=== PATIENT | female | born 1945 | race Caucasian/White ===

== ENCOUNTER 2018-11-11 05:50 | Inpatient (IN) | payer MEDICARE ==
[2018-11-08 14:19] LABS: BASOPHILS % (AUTO) 0.5 % (0.0-5.0); EOSINOPHILS % (AUTO) 2.1 % (0.0-8.0); HEMATOCRIT 37.9 % (36-48); LYMPHOCYTES % (AUTO) 25.4 % (21.0-51.0); MEAN CORPUSCULAR HEMOGLOBIN 30.5 pg (27.0-33.0); MEAN CORPUSCULAR HGB CONC 33.1 g/dL (32.0-36.0); MEAN CORPUSCULAR VOLUME 92.2 fL (79-99); MONOCYTES % (AUTO) 8.7 % (3.0-13.0); NEUTROPHILS % (AUTO) 63.3 % (40.0-77.0); NUCLEATED RED BLOOD CELLS 0.1 % (0.0-0.19); PLATELET COUNT (AUTO) 281 K/uL (130-400); RED BLOOD CELL COUNT(AUTO) 4.11 MIL/uL (4.00-5.50); RED CELL DISTRIBUTION WIDTH 14.6 % (11.0-15.5); WHITE BLOOD COUNT (AUTO) 7.7 K/uL (4.8-10.8)
[2018-11-08 14:26] VITALS: BP 157/88
[2018-11-08 14:38] LABS: CREATININE 0.8 mg/dL (0.5-1.5); POTASSIUM 4.5 mmol/L (3.5-5.1)
[~2018-11-11] VITALS: Ht 172.7 cm; Wt 105.1 kg
[2018-11-11] VITALS (22 sets, daily range): BP systolic 119–183; BP diastolic 63–81
[~2018-11-11 05:50] MED LIST: ACET650T24 PO; GABA-531 PO; OMEP40CA37 PO
[2018-11-11] MEDS ORDERED: CEFAZOLIN SODIUM 1 GM VIAL ONE (06:31)
[2018-11-11] MEDS ORDERED: LACTATED RINGERS 1000ML 1,000 ML IV ONE (06:31)
[2018-11-11] MEDS ORDERED: SUCCINYLCHOLINE 200MG/10ML SYR ONE ×2 (06:49→10:35)
[2018-11-11] MEDS ORDERED: LIDOCAINE PF 2% 5ML ABBOJECT ONE (06:50)
[2018-11-11] MEDS ORDERED: DEXAMETHASONE SOD PHOSPHATE 10MG/ML 1ML VIAL ONE ×2 (06:50→06:56)
[2018-11-11] MEDS ORDERED: NEOSTIGMINE 5MG/5ML SYR IV ONE (06:51)
[2018-11-11] MEDS ORDERED: GLYCOPYRROLATE 1 MG/5 ML SYRINGE ONE (06:51)
[2018-11-11] MEDS ORDERED: PROPOFOL 10 MG/ML 20ML VIAL IV ONE (06:51)
[2018-11-11] MEDS ORDERED: MIDAZOLAM HCL 1 MG/ML 2ML VIAL ONE (06:51)
[2018-11-11] MEDS ORDERED: FENTANYL CITRATE PF 50 MCG/1 ML 2ML VIAL ONE ×2 (06:52→10:22)
[2018-11-11] MEDS ORDERED: ONDANSETRON HCL 4 MG/2 ML VIAL ONE (06:52)
[2018-11-11] MEDS ORDERED: ROCURONIUM 10MG/1ML SYR 10 MG/ML ML ONE (06:52)
[2018-11-11] MEDS ORDERED: BUPIVACAINE/EPI/PF 0.25% 30ML VIAL IJ ONE (07:04)
[2018-11-11] MEDS ORDERED: THROMBIN-JMI 20000 UNIT KIT TP ONE (07:05)
[2018-11-11] MEDS ORDERED: BACITRACIN 50,000 UNIT VIAL ONE (07:05)
[2018-11-11] MEDS ORDERED: CEFAZOLIN SODIUM 1 GM VIAL IVP ONE (08:00)
[2018-11-11] MEDS ORDERED: PROMETHAZINE HCL 25 MG/ML 1ML AMPULE IM PRN (11:00)
[2018-11-11] MEDS ORDERED: MORPHINE SULFATE 2 MG/ML 1ML SYG IVP PRN (11:00)
[2018-11-11] MEDS ORDERED: SODIUM CHLORIDE 0.9% 10 ML VIAL IVP PRN (11:00)
[2018-11-11] MEDS ORDERED: ACETAMINOPHEN EXTENDED RELEASE 650 MG TABLET PO PRN (11:00)
[2018-11-11] MEDS: DEXAMETHASONE SOD PHOSPHATE 4 MG/ML 1ML VIAL IVP SCH ×3 (12:00→23:53)
[2018-11-11] MEDS: LACTATED RINGERS 1000ML 1,000 ML IV SCH ×2 (12:00→23:49)
[2018-11-11] MEDS: HYDROCODONE/ACETAMINOPHEN 5/325 MG TAB PO PRN ×3 (13:21→21:39)
[2018-11-11] MEDS: CEFAZOLIN SODIUM 1 GM VIAL IVP SCH ×3 (15:55→20:08)
--- NOTE | 2018-11-11 20:00 | NUR ---
ACTIVITY AMBULATED IN THE HALLWAY, STEADY GAIT, NO SOB, NO C/O PAIN, TOLERATED WELL, BACK TO BED, F/C TO GRAVITY DRAINAGE WITH CLEAR YELLOW URINE
[2018-11-11] MEDS ORDERED: GABAPENTIN 300 MG CAPSULE PO SCH (21:00)
--- NOTE | 2018-11-11 21:05 | NUR ---
ACTIVITY AMBULATED IN THE HALLWAY, STEADY GAIT, NO SOB NO C/O PAIN AT THIS TIME, BACK TO BED, F/C TO GRAVITY DRAINAGE WITH CLEAR YELLOW URINE, CALL GAITAN AT REACH, SOFT COLLAR INTACT DRESSING ANTERIOR NECK D/I
[2018-11-12] VITALS: BP 156/72
[2018-11-12 04:00] VITALS: BP 126/64
[2018-11-12] MEDS: DEXAMETHASONE SOD PHOSPHATE 4 MG/ML 1ML VIAL IVP SCH (05:23)
--- NOTE | 2018-11-12 06:30 | NUR ---
F/C F/C DISCONTINUED ORDERED, TOLERATED WELL, DTV, INSTRUCT PATIENT TO CALL NURSE WHEN URGE TO VOID, PATIENT VERBALIZES UNDERSTANDING VIA TEACH BACK, CALL GAITAN AT REACH
[2018-11-12 07:36] VITALS: BP 118/61
[2018-11-12] MEDS: CEFAZOLIN SODIUM 1 GM VIAL IVP SCH (08:33)
[2018-11-12] MEDS ORDERED: PANTOPRAZOLE SODIUM 40 MG TABLET.DR PO SCH (09:00)
--- NOTE | 2018-11-12 11:00 | NUR ---
DISCHARGE DISCHARGE TEACHING PROVIDED TO PATIENT REGARDING RX (TRAMADOL), SCHEDULED F/U APPT WITH DR. DUARTE, DR. DUARTE DISCHARGE INSTRUCTIONS. STAPLE REMOVAL KIT PROVIDED TO PATIENT AND INFORMED TO TAKE STAPLE REMOVAL KIT TO F/U APPT WITH DR. DUARTE. PERFORMED NECK DRESSING CHANGE. ANTERIOR NECK INCISION NOTED TO BE ASYMPTOMATIC, APPROXIMATED, 17 CLIVE INTACT. CLEANSED NECK INCISION WITH BETADINE, APPLIED 4X4 GAUZE, SECURED WITH MEDIPORE TAPE. REAPPLIED SOFT CERVICAL COLLAR AFTER DRESSING CHANGE. REMOVED 20G IV FROM LEFT HAND, CATHETER TIP INTACT. PATIENT VERBALIZED UNDERSTANDING OF DISCHARGE TEACHING. PATIENT REPORTS NO PAIN AND IS IN NO APPARENT DISTRESS. PATIENT TO BE DRIVEN HOME BY FRIEND.
--- NOTE | 2018-11-15 09:06 | NUR ---
CM NOTES PT HERE FOR SHORT STAY INPATIENT SCHEDULED PROCEDURE. NO TRIGGERS TO CM NO CONCERNS VOICED TO PRIMARY RN CHART REVIEWED, PT DC'D PRIOR TO CM DETAILED ASSESSMENT Addendum: 11/15/18 at 0908 by RUFINO BHARDWAJ RN CM Amended: Links added.
== END 2018-11-12 11:00 | disposition home or self-care (01) | DRG 473 ==
LOC: DAHIP 05:50 → 4AH 12:49
PROVIDERS: ADMIT Neurological Surgery; ATTEND Neurological Surgery
PROC: 0RG20A0 Fusion of 2 or more Cervical Vertebral Joints with Interbody Fusion Device, Anterior Approach, Anterior Column, Open Approach (ICD-10-PCS; principal; 2018-11-11 07:55)
PROC: 4A11X4G Monitoring of Peripheral Nervous Electrical Activity, Intraoperative, External Approach (ICD-10-PCS; 2018-11-11 07:55)
DX: M47.22 Other spondylosis with radiculopathy, cervical region (principal); K21.0 Gastro-esophageal reflux disease with esophagitis; K22.70 Barrett's esophagus without dysplasia; M25.78 Osteophyte, vertebrae; M48.02 Spinal stenosis, cervical region; I10 Essential (primary) hypertension; M54.9 Dorsalgia, unspecified; I08.0 Rheumatic disorders of both mitral and aortic valves; G47.33 Obstructive sleep apnea (adult) (pediatric); E66.9 Obesity, unspecified; Z88.8 Allergy status to other drugs, medicaments and biological substances; Z91.041 Radiographic dye allergy status; Z90.49 Acquired absence of other specified parts of digestive tract; Z98.51 Tubal ligation status; Z68.35 Body mass index [BMI] 35.0-35.9, adult
CPT/HCPCS: 36415; 72020; 80048; 85025; A4344; G0378; J0330; J0690; J1100; J2001; J2250; J2405; J2704; J2710; J3010; J3490; J7120

== ENCOUNTER → 2018-12-10 | Outpatient (CLI) | payer MEDICARE | END | disposition home or self-care (01) | LOC: OIH 09:49 | PROVIDERS: ATTEND Neurological Surgery | DX: M47.812 Spondylosis without myelopathy or radiculopathy, cervical region (principal); M43.22 Fusion of spine, cervical region; M85.88 Other specified disorders of bone density and structure, other site | CPT/HCPCS: 72040 ==

== ENCOUNTER 2018-12-23 08:01 | Inpatient (IN) | payer MEDICARE ==
[2018-12-20 12:50] VITALS: BP 141/66
[2018-12-20 12:53] LABS: BASOPHILS % (AUTO) 0.7 % (0.0-5.0); EOSINOPHILS % (AUTO) 3.8 % (0.0-8.0); HEMATOCRIT 39.3 % (36-48); LYMPHOCYTES % (AUTO) 31.4 % (21.0-51.0); MEAN CORPUSCULAR HEMOGLOBIN 29.7 pg (27.0-33.0); MEAN CORPUSCULAR HGB CONC 32.8 g/dL (32.0-36.0); MEAN CORPUSCULAR VOLUME 90.4 fL (79-99); MONOCYTES % (AUTO) 10.9 % (3.0-13.0); NEUTROPHILS % (AUTO) 53.2 % (40.0-77.0); NUCLEATED RED BLOOD CELLS 0.1 % (0.0-0.19); PLATELET COUNT (AUTO) 182 K/uL (130-400); RED BLOOD CELL COUNT(AUTO) 4.35 MIL/uL (4.00-5.50)
[2018-12-20 12:54] LABS: APPEARANCE,URINE TURBID (CLEAR); BILIRUBIN,URINE NEGATIVE (NEGATIVE); COLOR,URINE YELLOW (YELLOW); GLUCOSE, URINE (UA) NEGATIVE (NEGATIVE); KETONES,URINE NEGATIVE (NEGATIVE); LEUKOCYTE ESTERASE ,URINE MODERATE (NEGATIVE); NITRATE,URINE POSITIVE (NEGATIVE); OCCULT BLOOD,URINE MODERATE (NEGATIVE); PH,URINE 5.5 (5.0-8.0); PROTEIN,URINE TRACE mg/dL (NEGATIVE); UROBILINOGEN,URINE 0.2 mg/dL (0.2-1.0)
[2018-12-20 13:03] LABS: CREATININE 1.1 mg/dL (0.5-1.5); POTASSIUM 4.7 mmol/L (3.5-5.1)
[2018-12-20 13:08] LABS: BACTERIA,URINE Many /HPF (None Seen); RBC,URINE 0-1 /HPF (0-1); SQUAMOUS EPITHELIAL CELL,UR Rare /HPF (0-2); WBC,URINE TNTC /HPF (0-1)
--- NOTE | 2018-12-22 17:51 | NUR ---
NURSING: REPORTED ABNORMAL LABS TO [place] AT DR. SAL'S OFFICE, NO NEW ORDERS RECEIVED, OK TO PROCEED.
[2018-12-23] VITALS (23 sets, daily range): BP systolic 120–149; BP diastolic 49–72
[~2018-12-23] VITALS: Ht 172.7 cm; Wt 105.1 kg
[2018-12-23] MEDS: CEFTRIAXONE SODIUM 1 GM IVP SCH ×2 (06:00→09:36)
[2018-12-23] MEDS ORDERED: IOHEXOL-350 50ML VIAL IV ONE (09:10)
[2018-12-23] MEDS ORDERED: SODIUM CHLORIDE 0.9% 1000ML 0 ML IV ONE (09:18)
[2018-12-23] MEDS: GENTAMICIN 80 MG/NS 100 ML PB 100 ML IV SCH ×2 (09:26→13:08)
[2018-12-23] MEDS ORDERED: LACTATED RINGERS 1000ML 1,000 ML IV ONE (09:31)
[2018-12-23] MEDS ORDERED: FENTANYL CITRATE PF 50 MCG/1 ML 2ML VIAL ONE (09:33)
[2018-12-23] MEDS ORDERED: LIDOCAINE PF 2% 5ML ABBOJECT ONE (09:33)
[2018-12-23] MEDS ORDERED: MIDAZOLAM HCL 1 MG/ML 2ML VIAL ONE (09:33)
[2018-12-23] MEDS ORDERED: PROPOFOL 10 MG/ML 20ML VIAL IV ONE (09:33)
[2018-12-23] MEDS ORDERED: DEXAMETHASONE SOD PHOSPHATE 10MG/ML 1ML VIAL ONE (09:37)
[2018-12-23] MEDS ORDERED: ONDANSETRON HCL 4 MG/2 ML VIAL ONE (09:38)
[2018-12-23] MEDS ORDERED: EPHEDRINE SULFATE 50 MG/ML AMPULE ONE (09:51)
[2018-12-23] MEDS ORDERED: MEPERIDINE-PF 25 MG/ML SYG ONE (10:03)
--- NOTE | 2018-12-23 10:45 | NUR ---
PROCEDURE REPORT RECEIVED FROM YADEE ROBLES (PACU). PATIENT S/P BILATERAL URETERAL STENT PLACEMENT BY DR. SAL. PATIENT STABLE AT THIS TIME.
[2018-12-23 10:48] LABS: BASOPHILS % (AUTO) 0.4 % (0.0-5.0); EOSINOPHILS % (AUTO) 1.2 % (0.0-8.0); HEMATOCRIT 34.2 % (36-48); LYMPHOCYTES % (AUTO) 43.4 % (21.0-51.0); MEAN CORPUSCULAR HEMOGLOBIN 30.2 pg (27.0-33.0); MEAN CORPUSCULAR HGB CONC 33.5 g/dL (32.0-36.0); MEAN CORPUSCULAR VOLUME 90.4 fL (79-99); MONOCYTES % (AUTO) 7.6 % (3.0-13.0); NEUTROPHILS % (AUTO) 47.4 % (40.0-77.0); NUCLEATED RED BLOOD CELLS 0.1 % (0.0-0.19); PLATELET COUNT (AUTO) 137 K/uL (130-400); RED BLOOD CELL COUNT(AUTO) 3.79 MIL/uL (4.00-5.50); RED CELL DISTRIBUTION WIDTH 14.9 % (11.0-15.5); WHITE BLOOD COUNT (AUTO) 6.3 K/uL (4.8-10.8)
[2018-12-23 10:55] LABS: CREATININE 1.2 mg/dL (0.5-1.5); POTASSIUM 3.8 mmol/L (3.5-5.1)
[2018-12-23] MEDS ORDERED: ONDANSETRON HCL 4 MG/2 ML VIAL IVP PRN (16:45)
--- NOTE | 2018-12-23 17:40 | NUR ---
CALL RECEIVED FROM KRANTHI HERNANDEZ TO DISCHARGE PATIENT IN AM IF NO FEVER DURING REGIONAL ACCOUNT EXECUTIVE. PATIENT TO START LEVAQUIN 500MG 1 TAB PO DAILY X 7 DAYS AFTER 24 HOURS FROM LAST ROCEPHIN ADMINISTRATION. FOLLOW UP IN 1 WEEK IN THE OFFICE.
[2018-12-23] MEDS: LACTATED RINGERS 1000ML 1,000 ML IV SCH (20:08)
[2018-12-24] VITALS: BP 143/76
[2018-12-24 04:00] VITALS: BP 133/62
[2018-12-24] MEDS: LACTATED RINGERS 1000ML 1,000 ML IV SCH ×2 (04:28→18:24)
[2018-12-24 08:00] VITALS: BP 126/66
--- NOTE | 2018-12-24 08:40 | NUR ---
DR. DORON GUEVARA RE; PT REFUSING TO LEAVE Addendum: 12/24/18 at 1048 by FAHAD OCAMPO RN RN PT FEELS VERY WEAK AND IS AFRAID OF NOT BEING ABLE TO CARE FOR HERSELF AT HOME TODAY.
[2018-12-24] MEDS: CEFTRIAXONE SODIUM 1 GM IVP SCH (09:38)
[2018-12-24] MEDS: PANTOPRAZOLE SODIUM 40 MG TABLET.DR PO SCH (09:38)
[2018-12-24 11:00] VITALS: BP 124/68
[2018-12-24 16:00] VITALS: BP 143/75
[2018-12-24 19:52] VITALS: BP 145/69
[2018-12-24] MEDS: ACETAMINOPHEN 325 MG TAB PO PRN (20:10)
[2018-12-25] VITALS (7 sets, daily range): BP systolic 103–149; BP diastolic 54–72
[2018-12-25] MEDS: ACETAMINOPHEN 325 MG TAB PO PRN ×2 (03:20→17:14)
[2018-12-25 06:02] LABS: HEMATOCRIT 32.4 % (36-48); MEAN CORPUSCULAR HEMOGLOBIN 30.4 pg (27.0-33.0); MEAN CORPUSCULAR HGB CONC 34.1 g/dL (32.0-36.0); MEAN CORPUSCULAR VOLUME 89.1 fL (79-99); NUCLEATED RED BLOOD CELLS 0.1 % (0.0-0.19); PLATELET COUNT (AUTO) 142 K/uL (130-400); RED BLOOD CELL COUNT(AUTO) 3.63 MIL/uL (4.00-5.50); RED CELL DISTRIBUTION WIDTH 14.8 % (11.0-15.5); WHITE BLOOD COUNT (AUTO) 4.3 K/uL (4.8-10.8)
[2018-12-25 06:12] LABS: CREATININE 1.1 mg/dL (0.5-1.5); POTASSIUM 3.5 mmol/L (3.5-5.1)
[2018-12-25] MEDS: LACTATED RINGERS 1000ML 1,000 ML IV SCH ×2 (08:23→20:15)
[2018-12-25] MEDS: PANTOPRAZOLE SODIUM 40 MG TABLET.DR PO SCH (08:42)
[2018-12-25] MEDS: CEFTRIAXONE SODIUM 1 GM IVP SCH (08:42)
[2018-12-25] MEDS ORDERED: POTASSIUM CHLORIDE 20 MEQ ERTAB PO ONE (17:06)
[2018-12-25] MEDS ORDERED: POTASSIUM CHLORIDE 20 MEQ ERTAB PO SCH (17:15)
[2018-12-25] MEDS: LEVOFLOXACIN 750 MG/D5W 150 ML 150 ML IV SCH (19:38)
[2018-12-26] MEDS: ACETAMINOPHEN 325 MG TAB PO PRN ×3 (03:54→23:25)
[2018-12-26] MEDS: LACTATED RINGERS 1000ML 1,000 ML IV SCH ×2 (03:59→19:18)
[2018-12-26 04:07] VITALS: BP 145/58
[2018-12-26 05:44] LABS: BASOPHILS % (AUTO) 0.6 % (0.0-5.0); EOSINOPHILS % (AUTO) 1.4 % (0.0-8.0); LYMPHOCYTES % (AUTO) 43.2 % (21.0-51.0); MEAN CORPUSCULAR HEMOGLOBIN 30.3 pg (27.0-33.0); MEAN CORPUSCULAR HGB CONC 33.9 g/dL (32.0-36.0); MEAN CORPUSCULAR VOLUME 89.4 fL (79-99); MONOCYTES % (AUTO) 8.6 % (3.0-13.0); NEUTROPHILS % (AUTO) 46.2 % (40.0-77.0); PLATELET COUNT (AUTO) 146 K/uL (130-400); RED CELL DISTRIBUTION WIDTH 15.2 % (11.0-15.5); WHITE BLOOD COUNT (AUTO) 5.1 K/uL (4.8-10.8)
[2018-12-26 06:18] LABS: ALBUMIN 2.4 g/dL (3.5-5.0); BILIRUBIN,TOTAL 0.4 mg/dL (0.2-1.0); MAGNESIUM 1.4 mg/dL (1.80-2.40); PHOSPHORUS 2.9 mg/dL (2.5-4.9); POTASSIUM 3.5 mmol/L (3.5-5.1); THYROID STIMULATING HORMONE 1.01 uIU/mL (0.36-3.74); TOTAL PROTEIN, SERUM 5.3 g/dL (6.0-8.3)
[2018-12-26] MEDS ORDERED: POTASSIUM CHLORIDE 10% ELIXIR 20 MEQ/15 ML UDCUP PO PRN (08:00)
[2018-12-26] MEDS ORDERED: POTASSIUM CHLORIDE 20MEQ/100ML 100 ML IV PRN (08:00)
[2018-12-26] MEDS ORDERED: LIDOCAINE HCL-MPF 1% 2ML VIAL IV PRN (08:00)
[2018-12-26 08:08] VITALS: BP 114/64
--- NOTE | 2018-12-26 08:30 | NUR ---
PATIENT HAS BILATERAL URETERAL STENT PLACEMENT 12/23 Addendum: 12/26/18 at 1132 by ISELA DOUGLASS RN RN Amended: Links added.
[2018-12-26] MEDS ORDERED: LEVOFLOXACIN 750 MG/D5W 150 ML 150 ML IV SCH (09:00)
[2018-12-26] MEDS: PANTOPRAZOLE SODIUM 40 MG TABLET.DR PO SCH (09:12)
[2018-12-26] MEDS: MAGNESIUM 2GM PREMIX 50ML 50 ML IV PRN (09:13)
[2018-12-26] MEDS: POTASSIUM CHLORIDE 20 MEQ ERTAB PO PRN (09:16)
--- NOTE | 2018-12-26 10:44 | NUR ---
DR SAL ROUNDED ON PATIENT ORDERERS PLACED FOR UA AND URINE CULTURE.
[2018-12-26 11:00] LABS: APPEARANCE,URINE Cloudy (CLEAR); BILIRUBIN,URINE Negative (NEGATIVE); COLOR,URINE Orange (YELLOW); GLUCOSE, URINE (UA) Negative (NEGATIVE); KETONES,URINE Negative (NEGATIVE); LEUKOCYTE ESTERASE ,URINE Moderate (NEGATIVE); NITRATE,URINE Negative (NEGATIVE); OCCULT BLOOD,URINE Large (NEGATIVE); PROTEIN,URINE POS 2+ mg/dL (NEGATIVE)
[2018-12-26 11:21] LABS: BACTERIA,URINE Rare /HPF (None Seen); RBC,URINE >100 /HPF (0-1); TRANSITIONAL EPI CELLS,URINE Few /HPF (None Seen)
[2018-12-26 11:22] LABS: RENAL EPITHELIAL CELLS,URINE Rare /HPF (None Seen)
[2018-12-26 12:19] VITALS: BP 110/43
[2018-12-26 15:51] VITALS: BP 147/67
[2018-12-26] MEDS ORDERED: LACTULOSE 20 GM/30 ML UDCUP PO PRN (17:15)
[2018-12-26 19:33] VITALS: BP 127/67
[2018-12-26] MEDS: LEVOFLOXACIN 750 MG/D5W 150 ML 150 ML IV SCH (19:53)
[2018-12-27] MEDS: LACTATED RINGERS 1000ML 1,000 ML IV SCH (00:18)
[2018-12-27 00:19] VITALS: BP 145/96
[2018-12-27 04:15] VITALS: BP 114/62
[2018-12-27 05:46] LABS: BASOPHILS % (AUTO) 0.5 % (0.0-5.0); EOSINOPHILS % (AUTO) 0.3 % (0.0-8.0); HEMATOCRIT 33.3 % (36-48); LYMPHOCYTES % (AUTO) 51.5 % (21.0-51.0); MEAN CORPUSCULAR HEMOGLOBIN 29.9 pg (27.0-33.0); MEAN CORPUSCULAR HGB CONC 33.3 g/dL (32.0-36.0); MEAN CORPUSCULAR VOLUME 89.6 fL (79-99); MONOCYTES % (AUTO) 6.6 % (3.0-13.0); NEUTROPHILS % (AUTO) 41.1 % (40.0-77.0); NUCLEATED RED BLOOD CELLS 0.1 % (0.0-0.19); PLATELET COUNT (AUTO) 143 K/uL (130-400); RED BLOOD CELL COUNT(AUTO) 3.72 MIL/uL (4.00-5.50); RED CELL DISTRIBUTION WIDTH 14.9 % (11.0-15.5)
[2018-12-27 06:10] LABS: ALBUMIN 2.4 g/dL (3.5-5.0); BILIRUBIN,TOTAL 0.4 mg/dL (0.2-1.0); CREATININE 1.1 mg/dL (0.5-1.5); MAGNESIUM 1.8 mg/dL (1.80-2.40); POTASSIUM 3.6 mmol/L (3.5-5.1); TOTAL PROTEIN, SERUM 5.1 g/dL (6.0-8.3)
[2018-12-27 07:30] VITALS: BP 118/63
[2018-12-27] MEDS: PANTOPRAZOLE SODIUM 40 MG TABLET.DR PO SCH (09:23)
[2018-12-27] MEDS: ACETAMINOPHEN 325 MG TAB PO PRN ×2 (09:24→16:20)
[2018-12-27 11:00] VITALS: BP 104/39
[2018-12-27 16:00] VITALS: BP 129/57
[2018-12-27] MEDS: POTASSIUM CHLORIDE 20 MEQ ERTAB PO PRN (16:19)
[2018-12-27] MEDS: MAGNESIUM 2GM PREMIX 50ML 50 ML IV PRN (16:21)
[2018-12-27 20:00] VITALS: BP 128/63
[2018-12-27] MEDS: LEVOFLOXACIN 750 MG/D5W 150 ML 150 ML IV SCH (21:19)
[2018-12-28] VITALS: BP 155/61
[2018-12-28] MEDS: ACETAMINOPHEN 325 MG TAB PO PRN ×3 (00:30→18:56)
--- NOTE | 2018-12-28 01:45 | NUR ---
ELEVATED TEMPERATURE REASSESSMENT OF TEMPERATURE 102.9 FROM TEMP 100.2. PATIENT WANTING TO SHOWER RIGHT NOW TO SEE IF TEMPERATURE WILL GO DOWN.
[2018-12-28 04:00] VITALS: BP 117/55
[2018-12-28] MEDS: LACTATED RINGERS 1000ML 1,000 ML IV SCH ×2 (04:38→18:59)
[2018-12-28 05:52] LABS: HEMATOCRIT 32.4 % (36-48); MEAN CORPUSCULAR HEMOGLOBIN 29.7 pg (27.0-33.0); MEAN CORPUSCULAR HGB CONC 33.7 g/dL (32.0-36.0); MEAN CORPUSCULAR VOLUME 88.4 fL (79-99); NUCLEATED RED BLOOD CELLS 0.2 % (0.0-0.19); PLATELET COUNT (AUTO) 162 K/uL (130-400); RED BLOOD CELL COUNT(AUTO) 3.67 MIL/uL (4.00-5.50); RED CELL DISTRIBUTION WIDTH 15.3 % (11.0-15.5); WHITE BLOOD COUNT (AUTO) 8.5 K/uL (4.8-10.8)
[2018-12-28 06:00] LABS: ALBUMIN 2.2 g/dL (3.5-5.0); BILIRUBIN,TOTAL 0.5 mg/dL (0.2-1.0); CREATININE 1.3 mg/dL (0.5-1.5); POTASSIUM 3.7 mmol/L (3.5-5.1)
[2018-12-28] MEDS: POTASSIUM CHLORIDE 20 MEQ ERTAB PO PRN ×2 (06:41→09:24)
[2018-12-28 07:00] VITALS: BP 120/57
[2018-12-28 08:33] LABS: LYMPHOCYTES % (MANUAL) 36 % (22-44); MAN.DIFF COMMENT-IMPRESSION MANUAL DIFFERENTIAL; MONOCYTES % (MANUAL) 10 % (2-9); PLATELET MORPHOLOGY COMMENT ADEQUATE; REACTIVE LYMPHOCYTES 17 % (0-0); SEGMENTED NEUTROPHILS % 37 % (40-70)
[2018-12-28] MEDS: PANTOPRAZOLE SODIUM 40 MG TABLET.DR PO SCH (09:24)
[2018-12-28 11:00] VITALS: BP 122/86
[2018-12-28] MEDS: ZOSYN 3.375GM+NS 50ML 50 ML IV SCH ×2 (14:48→22:05)
[2018-12-28 16:00] VITALS: BP 122/67
--- NOTE | 2018-12-28 17:20 | NUR ---
Nutrition Intervention: Nutrition screen based on LOS x 5 days. Pt. S/P Cystoscopy with JJ stent placement chayo.(12/23/18). Pt. asleep during RD visit. Pt. on Regular diet. Pt. with 50% p.o. intake, as noted in EMR. Labs reviewed(Alb 2.2). LBM: 12/27/18. SR-21, elastic. BMI: 33.2, Obesity Grade 1. Recommendations: 1) Rec. Ensure QD with B'fast meal. 2) Continue to monitor pt's nutritional status. 3) Consult RD as nutrition concerns arise. Addendum: 12/28/18 at [address] Amended: Links added.
--- NOTE | 2018-12-28 18:30 | NUR ---
NOTIFIED RESPIRATORY REGARDING NEW ORDER FOR INCENTIVE SPIROMETER. PER RESP TECH WILL STOP BY
--- NOTE | 2018-12-28 18:30 | NUR ---
NOTIFIED JADEN CAMACHO REGARDING TEMP AT 102.4 ORAL . ORDERS GIVEN FOR BLOOD CULTURES . WILL CONT TO MONITOR
[2018-12-28 20:00] VITALS: BP 133/59
--- NOTE | 2018-12-28 23:53 | NUR ---
CPAP REQUESTED BY PT INFORMED RT THAT PATIENT WANTS A CPAP. LESLI RT SAID SHE WOULD SET HER UP WITH A CIRCUIT TO MATCH HER HOME SETTINGS.
[2018-12-29] VITALS (7 sets, daily range): BP systolic 78–133; BP diastolic 34–72
[2018-12-29 05:12] LABS: CREATININE 1.3 mg/dL (0.5-1.5); POTASSIUM 4.5 mmol/L (3.5-5.1)
[2018-12-29 05:26] LABS: HEMATOCRIT 35.1 % (36-48); MEAN CORPUSCULAR HEMOGLOBIN 29.8 pg (27.0-33.0); MEAN CORPUSCULAR HGB CONC 33.4 g/dL (32.0-36.0); MEAN CORPUSCULAR VOLUME 89.2 fL (79-99); NUCLEATED RED BLOOD CELLS 0.2 % (0.0-0.19); PLATELET COUNT (AUTO) 167 K/uL (130-400); RED BLOOD CELL COUNT(AUTO) 3.94 MIL/uL (4.00-5.50); RED CELL DISTRIBUTION WIDTH 15.7 % (11.0-15.5)
[2018-12-29] MEDS: ZOSYN 3.375GM+NS 50ML 50 ML IV SCH ×3 (06:08→21:07)
[2018-12-29] MEDS: LACTATED RINGERS 1000ML 1,000 ML IV SCH (06:09)
[2018-12-29 06:22] LABS: BAND NEUTROPHILS % (MANUAL) 15 % (0-2); BASOPHILS % (MANUAL) 1 % (0-2); EOSINOPHILS % (MANUAL) 1 % (1-6); LYMPHOCYTES % (MANUAL) 36 % (22-44); MAN.DIFF COMMENT-IMPRESSION MANUAL DIFFERENTIAL; MONOCYTES % (MANUAL) 6 % (2-9); REACTIVE LYMPHOCYTES 15 % (0-0); SEGMENTED NEUTROPHILS % 26 % (40-70)
[2018-12-29 06:23] LABS: PLATELET MORPHOLOGY COMMENT ADEQUATE
[2018-12-29] MEDS: ACETAMINOPHEN 325 MG TAB PO PRN ×2 (09:28→21:07)
[2018-12-29] MEDS: PANTOPRAZOLE SODIUM 40 MG TABLET.DR PO SCH (09:28)
--- NOTE | 2018-12-29 12:08 | NUR ---
PATIENT HAD JUST COMPLETED SOME ACTIVITIES WITH PHYSICAL THERAPY AND WAS LEFT SITTING IN THE CHAIR. DURING ROUTINE VITAL SIGNS CHECK SHE WAS FOUND HYPOTENSIVE WITH SBP 80'S/40'S AND SHE REPORTED FEELING WEEK. I REQUESTED THERESA THE PIGMENT PROCESSOR ASSIST HER BACK INTO BED WITH ELEVATION OF THE LOWER EXTREMITIES AND HOSPITALIST SALES SERVICE ASSISTANT WAS NOTIFIED OF THE CURRENT STATUS AND OF FEBRILE EPISODE EARLIER. NEW ORDER WAS RECEIVED FOR IV BOLUS. WILL CONTINUE TO MONITOR.
[2018-12-29] MEDS ORDERED: SODIUM CHLORIDE 0.9% 500ML 500 ML IV SCH (12:15)
[2018-12-29] MEDS ORDERED: SODIUM CHLORIDE 0.9% 500ML 500 ML IV ONE (12:15)
--- NOTE | 2018-12-29 13:30 | NUR ---
BP 128/77 WAS RECORDED AFTER THE NS BOLUS INFUSION.
[2018-12-29] MEDS: DOXYCYCLINE 100MG+NS 250ML 250 ML IV SCH (16:30)
[2018-12-30] VITALS (12 sets, daily range): BP systolic 77–131; BP diastolic 34–70
[2018-12-30] MEDS: LACTATED RINGERS 1000ML 1,000 ML IV SCH ×2 (04:53→23:18)
[2018-12-30] MEDS: DOXYCYCLINE 100MG+NS 250ML 250 ML IV SCH ×2 (04:53→16:35)
[2018-12-30 06:09] LABS: BASOPHILS % (AUTO) 0.5 % (0.0-5.0); EOSINOPHILS % (AUTO) 0.8 % (0.0-8.0); HEMATOCRIT 31.2 % (36-48); LYMPHOCYTES % (AUTO) 68.1 % (21.0-51.0); MEAN CORPUSCULAR HEMOGLOBIN 29.8 pg (27.0-33.0); MEAN CORPUSCULAR HGB CONC 33.7 g/dL (32.0-36.0); MEAN CORPUSCULAR VOLUME 88.3 fL (79-99); MONOCYTES % (AUTO) 6.4 % (3.0-13.0); NEUTROPHILS % (AUTO) 24.2 % (40.0-77.0); NUCLEATED RED BLOOD CELLS 0.1 % (0.0-0.19); PLATELET COUNT (AUTO) 171 K/uL (130-400); RED BLOOD CELL COUNT(AUTO) 3.54 MIL/uL (4.00-5.50); RED CELL DISTRIBUTION WIDTH 15.6 % (11.0-15.5); WHITE BLOOD COUNT (AUTO) 9.3 K/uL (4.8-10.8)
[2018-12-30 06:21] LABS: CREATININE 1.3 mg/dL (0.5-1.5); POTASSIUM 4.4 mmol/L (3.5-5.1)
[2018-12-30] MEDS: ZOSYN 3.375GM+NS 50ML 50 ML IV SCH ×3 (06:29→22:03)
[2018-12-30] MEDS: PANTOPRAZOLE SODIUM 40 MG TABLET.DR PO SCH (08:11)
[2018-12-30] MEDS: ACETAMINOPHEN 325 MG TAB PO PRN ×2 (08:13→20:08)
[2018-12-30] MEDS ORDERED: SODIUM CHLORIDE 0.9% 500ML 500 ML IV ONE (11:00)
[2018-12-30] MEDS ORDERED: SODIUM CHLORIDE 0.9% 500ML 500 ML IV SCH ×2 (11:00)
--- NOTE | 2018-12-30 11:15 | NUR ---
OBSERVED FLUSHED AND CLAMMY AND PT REPORTED FEELING WEAK AND WORSE THAN YESTERDAY. I REQUESTED THAT COAL CARRIER CHECK VS IMMEDIATELY AND BP 77/39 AND RECHECK BP 82/39 WITH TEMP 98.3. SHE WAS PLACED IN TRENDELENBERG POSITION AND HISTORIC CLOTHING AND COSTUME MAKER WAS NOTIFIED. ORDER WAS RECEIVED FOR NS 500ML IV BOLUS WHICH IS CARRIED OUT. WILL CONTINUE TO MONITOR.
--- NOTE | 2018-12-30 12:00 | NUR ---
IMPROVEMENT OBSERVED IN BLOOD PRESSURE AND PATIENT FACE DOES NOT LOOK FLUSHED ANYMORE. NEW IV LINE WAS INSERTED TO THE RIGHT FOREARM WITHOUT PROBLEM.
[2018-12-30] MEDS ORDERED: IOHEXOL 350 MG/ML 100ML INFUS..BTL IV ONE (14:25)
[2018-12-30] MEDS ORDERED: DIPHENHYDRAMINE HCL 25 MG CAPSULE PO PRN (14:30)
[2018-12-30] MEDS ORDERED: DiphenhydrAMINE HCL 50 MG/ML VIAL ONE (16:29)
--- NOTE | 2018-12-30 16:39 | NUR ---
TAKEN TO CT SCAN VIA W/C IN STABLE CONDITION. BENADRYL IV WAS ADMINISTERED PRIOR TO CT SCAN.
--- NOTE | 2018-12-30 17:15 | NUR ---
RETURNED FROM CT SCAN, IVF/ABX RESTARTED.
[2018-12-30] MEDS ORDERED: DiphenhydrAMINE HCL 50 MG/ML VIAL IV SCH (17:30)
[2018-12-31 03:33] VITALS: BP 109/59
[2018-12-31] MEDS: DOXYCYCLINE 100MG+NS 250ML 250 ML IV SCH ×2 (04:12→17:00)
[2018-12-31 04:13] LABS: BASOPHILS % (AUTO) 0.6 % (0.0-5.0); EOSINOPHILS % (AUTO) 0.6 % (0.0-8.0); HEMATOCRIT 30.3 % (36-48); MEAN CORPUSCULAR HEMOGLOBIN 30.3 pg (27.0-33.0); MEAN CORPUSCULAR HGB CONC 34.2 g/dL (32.0-36.0); MEAN CORPUSCULAR VOLUME 88.8 fL (79-99); MONOCYTES % (AUTO) 4.6 % (3.0-13.0); NEUTROPHILS % (AUTO) 22.2 % (40.0-77.0); NUCLEATED RED BLOOD CELLS 0.1 % (0.0-0.19); PLATELET COUNT (AUTO) 148 K/uL (130-400); RED BLOOD CELL COUNT(AUTO) 3.42 MIL/uL (4.00-5.50); RED CELL DISTRIBUTION WIDTH 15.9 % (11.0-15.5); WHITE BLOOD COUNT (AUTO) 10.4 K/uL (4.8-10.8)
[2018-12-31 04:20] LABS: CREATININE 1.3 mg/dL (0.5-1.5); POTASSIUM 3.9 mmol/L (3.5-5.1)
[2018-12-31] MEDS: ZOSYN 3.375GM+NS 50ML 50 ML IV SCH ×3 (06:09→22:29)
[2018-12-31] MEDS: PANTOPRAZOLE SODIUM 40 MG TABLET.DR PO SCH (06:39)
[2018-12-31 07:28] VITALS: BP 119/43
[2018-12-31 11:15] VITALS: BP 99/41
--- NOTE | 2018-12-31 13:35 | NUR ---
RD Follow up Note Pt tolerating current Regular Diet, Ensure QD, as per Pt. Pt with fair PO (50%). Pt states poor appetite but tries to eat. RD to update diet preferences to encourage increased PO intake. Pt LBM 12/30/18. GFR 43, Ca 7.4. RD to continue to monitor. Please notify RD as additional nutrition concerns arise. Thank you. Addendum: 12/31/18 at [address] Amended: Links added. Addendum: 12/31/18 at [address] ADDENDUM PATIENT REPORTS DOES NOT HAVE FISH/SEAFOOD ALLERGY
[2018-12-31 15:33] VITALS: BP 141/68
[2018-12-31] MEDS ORDERED: FUROSEMIDE 10 MG/ML 4ML VIAL IV SCH ×2 (18:00→21:00)
[2018-12-31 20:53] VITALS: BP_SYST 104; BP_SYST 146; BP_DIAS 45; BP_DIAS 72
[2018-12-31] MEDS: FLUCONAZOLE 100 MG TAB PO SCH (20:57)
--- NOTE | 2018-12-31 21:48 | NUR ---
+ D-Dimer Reported critical result to [employer] Shiv Putnam. Advised to informed rounding doctor. Patient currently denies chest pain, shortness of breath, call light within reach. .
[2018-12-31] MEDS: ACETAMINOPHEN 325 MG TAB PO PRN (23:41)
[2018-12-31 23:52] VITALS: BP 117/63
[2019-01-01 04:40] VITALS: BP 113/66
[2019-01-01] MEDS: DOXYCYCLINE 100MG+NS 250ML 250 ML IV SCH ×2 (05:08→16:07)
[2019-01-01] MEDS: ZOSYN 3.375GM+NS 50ML 50 ML IV SCH ×3 (06:55→21:49)
[2019-01-01] MEDS: PANTOPRAZOLE SODIUM 40 MG TABLET.DR PO SCH (07:27)
[2019-01-01 07:30] VITALS: BP 99/42
--- NOTE | 2019-01-01 07:30 | NUR ---
ASSESSMENT PT IS AAOX3 DENIES CP DENIES SOB DENIES NV NO COMPLAINTS RESTING IN BED. AM MEDS GIVEN, CALL LIGHT WITHIN REACH. B LORIN STANLEY ROUNDED, MADE AWARE OF D DIMER RESULTS. NO NEW ORDERS RECEIVED AT THIS TIME.
--- NOTE | 2019-01-01 09:56 | NUR ---
MOVED TO ROOM 232 ALL BELONGINGS TRANSFERRED OVER, TELE PACK CHANGED.
[2019-01-01 11:12] VITALS: BP 115/56
--- NOTE | 2019-01-01 13:00 | NUR ---
DR ALVAREZ ROUNDED SAW PATIENT
[2019-01-01 15:04] VITALS: BP 108/57
[2019-01-01] MEDS: ACETAMINOPHEN 325 MG TAB PO PRN (19:48)
[2019-01-01] MEDS: FLUCONAZOLE 100 MG TAB PO SCH (20:07)
[2019-01-01 20:24] VITALS: BP 122/52
[2019-01-02 00:07] VITALS: BP 98/49
[2019-01-02] MEDS: DOXYCYCLINE 100MG+NS 250ML 250 ML IV SCH (04:10)
[2019-01-02 05:02] LABS: HEMATOCRIT 32.4 % (36-48); MEAN CORPUSCULAR HEMOGLOBIN 29.7 pg (27.0-33.0); MEAN CORPUSCULAR HGB CONC 33.5 g/dL (32.0-36.0); MEAN CORPUSCULAR VOLUME 88.9 fL (79-99); NUCLEATED RED BLOOD CELLS 0.2 % (0.0-0.19); PLATELET COUNT (AUTO) 153 K/uL (130-400); RED BLOOD CELL COUNT(AUTO) 3.64 MIL/uL (4.00-5.50); RED CELL DISTRIBUTION WIDTH 15.6 % (11.0-15.5); WHITE BLOOD COUNT (AUTO) 11.2 K/uL (4.8-10.8)
[2019-01-02] MEDS: ZOSYN 3.375GM+NS 50ML 50 ML IV SCH (05:04)
[2019-01-02 05:13] VITALS: BP 108/58
[2019-01-02 05:16] LABS: BILIRUBIN,TOTAL 0.5 mg/dL (0.2-1.0); CREATININE 1.4 mg/dL (0.5-1.5); MAGNESIUM 1.7 mg/dL (1.80-2.40); POTASSIUM 3.6 mmol/L (3.5-5.1); TOTAL PROTEIN, SERUM 4.8 g/dL (6.0-8.3)
[2019-01-02 05:58] LABS: BAND NEUTROPHILS % (MANUAL) 8 % (0-2); LYMPHOCYTES % (MANUAL) 58 % (22-44); MAN.DIFF COMMENT-IMPRESSION MANUAL DIFFERENTIAL; MONOCYTES % (MANUAL) 6 % (2-9); PLATELET MORPHOLOGY COMMENT ADEQUATE; REACTIVE LYMPHOCYTES 9 % (0-0); SEGMENTED NEUTROPHILS % 19 % (40-70)
[2019-01-02 07:45] VITALS: BP 132/63
--- NOTE | 2019-01-02 08:00 | NUR ---
ASSESSMENT PT IS AAOX3 DENIES CP DENIES SOB DENIES NV NO COMPLAINTS. NO VISIBLE SIGNS OF DISTRESS NOTED. SITTING UP IN BED. ERWIN PADGETT ROUNDED. CALL LIGHT WITHIN REACH.
[2019-01-02] MEDS: PANTOPRAZOLE SODIUM 40 MG TABLET.DR PO SCH (08:03)
[2019-01-02] MEDS ORDERED: VANCOMYCIN PROTOCOL PER PHARMACY IV SCH (08:45)
[2019-01-02] MEDS ORDERED: FUROSEMIDE 10 MG/ML 2ML VIAL IV SCH (09:00)
[2019-01-02] MEDS: MEROPENEM 1 GM VIAL IVP SCH ×2 (09:05→16:03)
[2019-01-02] MEDS ORDERED: COMPOUND IV REFRIGERATED 1 EACH IVSOLN MISC PRN (09:30)
[2019-01-02] MEDS ORDERED: VANCOMYCIN 1.5 GM in SODIUM CHLORIDE 0.9% 250 ML IV SCH (09:30)
--- NOTE | 2019-01-02 10:57 | NUR ---
DR SMALL MADE AWARE OF CONSULT VIA PHONE, UPDATES GIVEN.
--- NOTE | 2019-01-02 11:00 | NUR ---
DR SMALL ROUNDED SAW PATIENT. NO NEW ORDERS, STATES HE WILL LET DR YUSUF KNOW OF PATIENT TOMORROW AM.
[2019-01-02 11:28] VITALS: BP 102/44
[2019-01-02 15:29] VITALS: BP 107/78
[2019-01-02] MEDS: FUROSEMIDE 10 MG/ML 2ML VIAL IV SCH (20:40)
[2019-01-02] MEDS: ACETAMINOPHEN 325 MG TAB PO PRN (20:41)
[2019-01-02 20:42] VITALS: BP 117/41
[2019-01-02] MEDS: FLUCONAZOLE 100 MG TAB PO SCH (20:42)
[2019-01-03] VITALS (7 sets, daily range): BP systolic 100–136; BP diastolic 40–68
--- NOTE | 2019-01-03 | NUR ---
PT. KEPT NPO AT THIS TIME.
[2019-01-03] MEDS: MEROPENEM 1 GM VIAL IVP SCH ×3 (00:54→17:14)
[2019-01-03 04:47] LABS: HEMATOCRIT 30.5 % (36-48); MEAN CORPUSCULAR HEMOGLOBIN 29.8 pg (27.0-33.0); MEAN CORPUSCULAR VOLUME 87.7 fL (79-99); NUCLEATED RED BLOOD CELLS 0.4 % (0.0-0.19); PLATELET COUNT (AUTO) 165 K/uL (130-400); RED BLOOD CELL COUNT(AUTO) 3.48 MIL/uL (4.00-5.50); RED CELL DISTRIBUTION WIDTH 15.8 % (11.0-15.5)
[2019-01-03 04:52] LABS: CREATININE 1.4 mg/dL (0.5-1.5); POTASSIUM 3.6 mmol/L (3.5-5.1)
[2019-01-03 06:29] LABS: BAND NEUTROPHILS % (MANUAL) 3 % (0-2); LYMPHOCYTES % (MANUAL) 44 % (22-44); MAN.DIFF COMMENT-IMPRESSION MANUAL DIFFERENTIAL; MONOCYTES % (MANUAL) 10 % (2-9); PLATELET MORPHOLOGY COMMENT ADEQUATE; REACTIVE LYMPHOCYTES 12 % (0-0); SEGMENTED NEUTROPHILS % 31 % (40-70)
[2019-01-03] MEDS: PANTOPRAZOLE SODIUM 40 MG TABLET.DR PO SCH (06:36)
--- NOTE | 2019-01-03 07:41 | NUR ---
Bedside report given to incoming NOD using SBAR,all questions answered.Pt. remained to have hematuria.Ultrasound was already done and pending result.
[2019-01-03] MEDS: FUROSEMIDE 10 MG/ML 2ML VIAL IV SCH ×2 (09:11→21:14)
[2019-01-03] MEDS: VANCOMYCIN 1.25 GM in SODIUM CHLORIDE 0.9% 250 ML IV SCH (09:12)
--- NOTE | 2019-01-03 10:47 | NUR ---
PAGED DR. Addie YUSUF, PER HIS OFFICE, TO NOTIFY OR PT. PER DR. SMALL'S ORDER. AWAITING RESPONSE.
--- NOTE | 2019-01-03 10:52 | NUR ---
PAGED DR. SAL TO NOTIFY OF CONSULT. AWAITING RESPONSE.
--- NOTE | 2019-01-03 10:56 | NUR ---
RECEIVED CALL FROM DR. Addie YUSUF, INFORMED OF CONSULT AND 2DECHO RESULTS, VERBALIZED UNDERSTANDING. NO NEW ORDERS RECEIVED AT THIS TIME.
--- NOTE | 2019-01-03 14:44 | NUR ---
PAGED DR. SAL TO PAGER NUMBER AVAILABLE TO INFORM OF RECONSULT. AWAITING RESPONSE.
--- NOTE | 2019-01-03 15:52 | NUR ---
RECEIVED CALL FROM DR. SAL, INFORMED OF CONSULT. NO NEW ORDERS RECEIVED AT THIS TIME.
--- NOTE | 2019-01-03 16:01 | NUR ---
DR. ALVAREZ AT NURSE'S STATION SPEAKING WITH DR. CHRISTIE RE:PT.'S PLAN OF CARE.
--- NOTE | 2019-01-03 16:25 | NUR ---
DR. REECE IN ROOM SPEAKING WITH PT. AND PT.'S SON AT BEDSIDE RE:PLAN OF CARE. QUESTIONS ANSWERED BY DR. REECE.
--- NOTE | 2019-01-03 21:00 | NUR ---
Pt. refused Lasix she wants it at housing development specialist she said she cant sleep always getting out of bed at night to void.
[2019-01-03] MEDS: POTASSIUM CHLORIDE 20 MEQ ERTAB PO PRN (21:14)
[2019-01-03] MEDS: FLUCONAZOLE 100 MG TAB PO SCH (21:14)
[2019-01-03] MEDS: ACETAMINOPHEN 325 MG TAB PO PRN (21:25)
[2019-01-03] MEDS ORDERED: IOHEXOL-350 50ML VIAL IV ONE (23:24)
[2019-01-03] MEDS ORDERED: IOHEXOL-350 75 ML VIAL IV ONE (23:24)
--- NOTE | 2019-01-03 23:43 | NUR ---
JADEN Melendez was called and notified about pt having allergy to Iodine and pt is for CT spine and thoracic however according to professor of radiology pt need s to be premedicated 24 hrs before the test can be done.So JADEN NIELSEN ordered to do the test tomorrow.
--- NOTE | 2019-01-03 23:45 | NUR ---
Obtained consent for CT and bone marrow biopsy separately from pt.
--- NOTE | 2019-01-04 | NUR ---
Pt. kept NPO,demonstrated understanding
[2019-01-04] MEDS: DiphenhydrAMINE HCL 50 MG/ML VIAL IV SCH (00:34)
[2019-01-04] MEDS: MEROPENEM 1 GM VIAL IVP SCH ×3 (00:38→16:16)
[2019-01-04 03:41] LABS: BASOPHILS % (AUTO) 0.3 % (0.0-5.0); EOSINOPHILS % (AUTO) 0.9 % (0.0-8.0); HEMATOCRIT 31.5 % (36-48); LYMPHOCYTES % (AUTO) 71.2 % (21.0-51.0); MEAN CORPUSCULAR HEMOGLOBIN 29.9 pg (27.0-33.0); MEAN CORPUSCULAR HGB CONC 34.2 g/dL (32.0-36.0); MEAN CORPUSCULAR VOLUME 87.4 fL (79-99); MONOCYTES % (AUTO) 6.4 % (3.0-13.0); NEUTROPHILS % (AUTO) 21.2 % (40.0-77.0); NUCLEATED RED BLOOD CELLS 0.2 % (0.0-0.19); PLATELET COUNT (AUTO) 150 K/uL (130-400); RED CELL DISTRIBUTION WIDTH 16.2 % (11.0-15.5); WHITE BLOOD COUNT (AUTO) 10.9 K/uL (4.8-10.8)
[2019-01-04 03:51] VITALS: BP 108/56
[2019-01-04 04:02] LABS: BILIRUBIN,DIRECT 0.2 mg/dL (0.0-0.3); BILIRUBIN,TOTAL 0.4 mg/dL (0.2-1.0); CREATININE 1.5 mg/dL (0.5-1.5); CRP QUANTITATIVE 67.1 mg/L (0.00-9.0); MAGNESIUM 1.7 mg/dL (1.80-2.40); PHOSPHORUS 3.1 mg/dL (2.5-4.9); POTASSIUM 4.3 mmol/L (3.5-5.1); TOTAL PROTEIN, SERUM 4.8 g/dL (6.0-8.3)
[2019-01-04 04:39] LABS: ERYTHROCYTE SEDIMENTATION RATE 20 MM/HR (0-30)
[2019-01-04] MEDS: PANTOPRAZOLE SODIUM 40 MG TABLET.DR PO SCH (06:30)
[2019-01-04] MEDS: MAGNESIUM 2GM PREMIX 50ML 50 ML IV PRN (06:33)
[2019-01-04] MEDS: FUROSEMIDE 10 MG/ML 2ML VIAL IV SCH ×2 (06:33→09:42)
--- NOTE | 2019-01-04 07:39 | NUR ---
Endorsed care to incoming NOD using SBAR,pt remained NPO.Pending CT spine and thoracic and bone marrow biopsy.Radiology called and informed NOD that if ruing out osteomyelitis contrast is not needed .info relayed to incoming NOD.We will clarify with primary .Pt. remained stable.
[2019-01-04 07:48] VITALS: BP 114/50
--- NOTE | 2019-01-04 08:58 | NUR ---
DR. ALVAREZ IN ROOM SPEAKING WITH PT. AND PT.'S SON AT BEDSIDE.
[2019-01-04] MEDS: VANCOMYCIN 1.25 GM in SODIUM CHLORIDE 0.9% 250 ML IV SCH (09:00)
[2019-01-04 11:07] VITALS: BP 93/55
[2019-01-04 12:24] LABS: INR 1.02 (0.85-1.15); PARTIAL THROMBOPLASTIN TIME 26.9 SEC (26.3-35.5); PROTHROMBIN TIME 10.7 SEC (9.6-11.6)
--- NOTE | 2019-01-04 12:38 | NUR ---
Jose Rafael OLMSTEAD NP, IN ROOM SPEAKING WITH PT. AND SON AT BEDSIDE.
[2019-01-04] MEDS: SODIUM CHLORIDE 0.9% 1000ML 1,000 ML IV SCH (13:10)
--- NOTE | 2019-01-04 13:57 | NUR ---
TPO CT GUIDED BIOPSY VIA BED ACCOMPANIED BY Riya RASHEED RN.
[2019-01-04] MEDS ORDERED: FENTANYL CITRATE PF 50 MCG/1 ML 2ML VIAL ONE (14:06)
--- NOTE | 2019-01-04 14:52 | NUR ---
RETURNED TO ROOM VIA BED ACCOMPANIED BY SEJAL ELECTROTYPER APPRENTICE. PT. DROWSY BUT AROUSABLE. DENIES ANY C/O SOB, DENIES ANY CURRENT PAIN. LEFT UPPER HIP AREA WITH DRSG IN PLACE, D/I. BED LOW, SIDE RAILS UP X3. CALL LIGHT WITHIN REACH. SON AT BEDSIDE. Addendum: 01/04/19 at 1802 by UVALDO LOUISE RN RN NO NEW ORDERS AT THIS TIME.
[2019-01-04 14:55] VITALS: BP 118/63
--- NOTE | 2019-01-04 15:00 | NUR ---
CT GD BONE MARROW ASP/ BX PROCEDURE PERFORMED BY DR Juanita SANTO. PUNCTURE SITE LT BUTTOCK AND PATIENT TOLERATED PROCEDURE WELL. SPECIMEN X 5 COLLECTED FROM LT ILIAC BONE AND SENT TO LAB. END OF PROCEDURE AT 1440. BIOPSY NEEDLE REMOVED AND DRESSING APPLIED. NO BLEEDING NOTED. REPORT GIVEN TO Jeannette LOUISE RN AND PATIENT TRANSPORTED TO [facility] VIA BED AT 1500. AAO X3 WITH NO C/O PAIN.
--- NOTE | 2019-01-04 15:10 | NUR ---
NO NEW ORDERS AT THIS TIME.
--- NOTE | 2019-01-04 15:30 | NUR ---
RESTING IN BED WITH EYES CLOSED, RESP.'S EVEN AND UNLABORED. CALL LIGHT WITHIN REACH. SON AT BEDSIDE. ROOM DOOR OPEN, VISIBLE FROM NURSE'S STATION.
[2019-01-04] MEDS: METHYLPREDNISOLONE SOD SUCC 125MG/2ML VIAL IVP SCH (16:16)
--- NOTE | 2019-01-04 17:36 | NUR ---
DR. Sarah CHRISTIE IN ROOM SPEAKING WITH PT. RE:PLAN OF CARE. PT.'S SON AT BEDSIDE. QUESTIONS ANSWERED BY DR. CHRISTIE.
[2019-01-04 19:59] VITALS: BP 122/71
[2019-01-04] MEDS: FLUCONAZOLE 100 MG TAB PO SCH (20:49)
[2019-01-04] MEDS: VANCOMYCIN 750MG + NS 250 ML IV SCH ×2 (22:04)
[2019-01-05] VITALS (7 sets, daily range): BP systolic 118–143; BP diastolic 60–75
[2019-01-05] MEDS: DiphenhydrAMINE HCL 50 MG/ML VIAL IV SCH ×2 (00:22→20:00)
[2019-01-05] MEDS: MEROPENEM 1 GM VIAL IVP SCH ×2 (00:22→08:01)
[2019-01-05] MEDS: SODIUM CHLORIDE 0.9% 1000ML 1,000 ML IV SCH ×2 (06:08→15:52)
[2019-01-05] MEDS: PANTOPRAZOLE SODIUM 40 MG TABLET.DR PO SCH (06:08)
--- NOTE | 2019-01-05 08:00 | NUR ---
ASSESSMENT PT IS AAOX3 DENIES CP DENIES SOB DENIES NV, BREATHING PATTERN IS EVEN AND UNLABORED WHILE AT REST. RESTING SITTING UPRIGHT IN BED. AM MEDS GIVEN, SON AT BEDSIDE. CALL LIGHT WITHIN REACH.
[2019-01-05] MEDS: VANCOMYCIN 750MG + NS 250 ML IV SCH ×2 (08:01)
[2019-01-05] MEDS: METHYLPREDNISOLONE SOD SUCC 125MG/2ML VIAL IVP SCH (08:01)
[2019-01-05 11:11] LABS: ROCKY MT SPOTTED FEVER IGG <1:64 (Neg:<1:64); TYPHUS FEVER AB IGG <1:64 (Neg:<1:64)
--- NOTE | 2019-01-05 15:32 | NUR ---
RD FOLLOW UP NOTE Pt tolerating Regular Diet with Ensure QD. RD to update food preferences to encourage improved PO intake. Pt with persistent fever, as per EMR. Pt pending possible bone marrow biopsy as per EMR. Pt monitored labs: BUN 26, GFR 36, Ca 7.8, Mg 1.70, AST 55, Alk 146, CRP 67.10, Alb 2.0. RD to continue to monitor. Please notify RD as nutrition concerns arise. Thank you. Addendum: 01/05/19 at [address] Amended: Links added.
--- NOTE | 2019-01-05 17:43 | NUR ---
DC PLAN VISITED WITH PATIENT. ROSS FOR SOL[facility] INFO SENT AND REP VISITED. DR. ALVAREZ VISITED SAID THAT PATIENT DID NOT NEED SOL[facility] SEND TO [facility]. PATIENT HAS SAID OKAY TO CANCEL SOLARA AND SEND TO [facility]. INFO SENT VIA FAX AND EMAIL. REP NOTIFIED. WILL DONE AND SENT. DC PLAN ONCE ACCEPTED. Addendum: 01/05/19 at 1746 by YANET AKHTAR RN CM Amended: Links added.
[2019-01-05] MEDS: CEPHALEXIN 500 MG CAPSULE PO SCH (20:02)
[2019-01-06 04:21] VITALS: BP 147/78
[2019-01-06] MEDS: SODIUM CHLORIDE 0.9% 1000ML 1,000 ML IV SCH (05:27)
[2019-01-06] MEDS: PANTOPRAZOLE SODIUM 40 MG TABLET.DR PO SCH (05:41)
[2019-01-06] MEDS: ACETAMINOPHEN 325 MG TAB PO PRN (06:48)
[2019-01-06 07:00] VITALS: BP 138/69
[2019-01-06] MEDS: CEPHALEXIN 500 MG CAPSULE PO SCH ×3 (07:52→19:39)
[2019-01-06] MEDS: CITALOPRAM 20 MG TABLET PO SCH (07:52)
[2019-01-06] MEDS: METHYLPREDNISOLONE SOD SUCC 125MG/2ML VIAL IVP SCH (07:52)
--- NOTE | 2019-01-06 08:00 | NUR ---
ASSESSMENT PT IS AAOX3 DENIES CP DENIES SOB DENIES NV, BREATHING PATTERN IS EVEN AND UNLABORED WHILE AT REST. AM MEDS GIVEN. RESTING SITTING UPRIGHT IN BED. ASSISTED UP TO RESTROOM, NOTED URINE STILL BLOODY, STRAINED URINE. DENIES PAIN OR BURNING CALL LIGHT WITHIN REACH.
--- NOTE | 2019-01-06 10:00 | NUR ---
UP TO SHOWER WITH NURSE AIDE ASSIST, BACK TO BED. TOLERATED WELL. CALL LIGHT WITHIN REACH.
[2019-01-06 11:00] VITALS: BP 159/75
--- NOTE | 2019-01-06 14:18 | NUR ---
KRISTINE PLAN PATIENT ACCEPTED AT 1210 LET KNOW OF ACCEPTANCE. GAVE HIM MED REC. PATIENT WILL GO VIA FACILITY [facility] DONE. Addendum: 01/06/19 at 1420 by YANET AKHTAR RN CM Amended: Links added.
[2019-01-06 16:00] VITALS: BP 154/70
--- NOTE | 2019-01-06 17:30 | NUR ---
PENDING HOSPITALIST TO ROUND PT IS SITTING UP IN CHAIR, NO COMPLAINTS. DENIES PAIN.
[2019-01-06] MEDS ORDERED: LOPERAMIDE HCL 2 MG CAP PO PRN (19:15)
--- NOTE | 2019-01-06 19:15 | NUR ---
EULOGIO, JOHNNY RX FOR IMODIUM D/T PT REPORTING LOOSE STOOLS 7X TODAY.
[2019-01-06 19:23] VITALS: BP 158/88
--- NOTE | 2019-01-06 22:15 | NUR ---
DR REECE SPOKE TO PT, PENDING CASE MGMT TO SEND HER TO [facility]. COLLECT STOOL FOR C DIFF D/T LOOSE STOOLS 7X TODAY. CONTINUE KEFLEX PRESCRIBED.
[2019-01-06 23:32] VITALS: BP 142/73
--- NOTE | 2019-01-07 00:38 | NUR ---
Patient did not want to go on her home CPAP tonight. Addendum: 01/07/19 at 0039 [address] SANDIE RT Amended: Links added.
[2019-01-07 03:25] VITALS: BP 146/72
[2019-01-07 03:47] LABS: BASOPHILS % (AUTO) 0.2 % (0.0-5.0); HEMATOCRIT 30.8 % (36-48); LYMPHOCYTES % (AUTO) 49.1 % (21.0-51.0); MEAN CORPUSCULAR HEMOGLOBIN 30.1 pg (27.0-33.0); MEAN CORPUSCULAR HGB CONC 34.2 g/dL (32.0-36.0); MONOCYTES % (AUTO) 7.2 % (3.0-13.0); NEUTROPHILS % (AUTO) 43.5 % (40.0-77.0); NUCLEATED RED BLOOD CELLS 0.3 % (0.0-0.19); PLATELET COUNT (AUTO) 188 K/uL (130-400); RED CELL DISTRIBUTION WIDTH 15.7 % (11.0-15.5); WHITE BLOOD COUNT (AUTO) 9.8 K/uL (4.8-10.8)
[2019-01-07 04:07] LABS: ALBUMIN 2.2 g/dL (3.5-5.0); MAGNESIUM 2.2 mg/dL (1.80-2.40); POTASSIUM 4.5 mmol/L (3.5-5.1)
[2019-01-07 04:19] LABS: BILIRUBIN,TOTAL 0.4 mg/dL (0.2-1.0); TOTAL PROTEIN, SERUM 5.2 g/dL (6.0-8.3)
[2019-01-07] MEDS: PANTOPRAZOLE SODIUM 40 MG TABLET.DR PO SCH (06:14)
[2019-01-07 07:00] VITALS: BP 145/63
--- NOTE | 2019-01-07 07:50 | NUR ---
ASSESSMENT ENCOUNTERED PT ASLEEP BUT AROUSEABLE, A&OX3, CALM COOPERATIVE AND DOES NOT APPEAR TO BE IN ANY DISTRESS NOR ANY NEURO DEFICITS PRESENT. PT DENIES PAIN, SOB, NAUSEA. PT IS AMBULATORY, GAIT STEADY AND STRONG WITH WALKER AND STAND BY ASSIST. TOLERATING WELL, CALL LIGHT WITHIN REACH.
[2019-01-07] MEDS: CITALOPRAM 20 MG TABLET PO SCH (09:31)
[2019-01-07] MEDS: CEPHALEXIN 500 MG CAPSULE PO SCH ×2 (09:31→12:37)
[2019-01-07] MEDS: METHYLPREDNISOLONE SOD SUCC 125MG/2ML VIAL IVP SCH (09:31)
[2019-01-07 11:00] VITALS: BP 132/63
--- NOTE | 2019-01-07 12:00 | NUR ---
DISCHARGE INSTRUCTIONS GIVEN, PIV REMOVED AND INTACT, REPORT CALLED TO ENRIQUETA LEWIS, SPOKE TO NURSE THONY TRUJILLO DISCHARGED VIA [facility] TRANSPORT[facility].
== END 2019-01-07 13:12 | DRG 854 ==
LOC: DAH 08:01 → DAHIP 08:02 → 3AH 11:27 → 2AH 12-30 21:28
PROVIDERS: ADMIT Family Medicine; ATTEND Family Medicine
PROC: BT171ZZ Fluoroscopy of Left Ureter using Low Osmolar Contrast (ICD-10-PCS; 2018-12-23)
PROC: BT161ZZ Fluoroscopy of Right Ureter using Low Osmolar Contrast (ICD-10-PCS; 2018-12-23)
PROC: 0T788DZ Dilation of Bilateral Ureters with Intraluminal Device, Via Natural or Artificial Opening Endoscopic (ICD-10-PCS; principal; 2018-12-23 09:50)
PROC: 07DR3ZX Extraction of Iliac Bone Marrow, Percutaneous Approach, Diagnostic (ICD-10-PCS; 2019-01-04)
DX: A41.51 Sepsis due to Escherichia coli [E. coli] (principal); N13.6 Pyonephrosis; I50.32 Chronic diastolic (congestive) heart failure; I13.0 Hypertensive heart and chronic kidney disease with heart failure and stage 1 through stage 4 chronic kidney disease, or unspecified chronic kidney disease; J98.11 Atelectasis; K76.89 Other specified diseases of liver; E88.09 Other disorders of plasma-protein metabolism, not elsewhere classified; D63.8 Anemia in other chronic diseases classified elsewhere; B34.9 Viral infection, unspecified; D72.820 Lymphocytosis (symptomatic); E66.9 Obesity, unspecified; Z68.35 Body mass index [BMI] 35.0-35.9, adult; G47.33 Obstructive sleep apnea (adult) (pediatric); J44.9 Chronic obstructive pulmonary disease, unspecified; K22.70 Barrett's esophagus without dysplasia; L89.90 Pressure ulcer of unspecified site, unspecified stage; N18.9 Chronic kidney disease, unspecified; Z87.891 Personal history of nicotine dependence; Z98.1 Arthrodesis status
CPT/HCPCS: 36415; 38222; 71046; 71260; 72125; 72128; 74018; 74176; 74177; 76705; 77002; 77012; 78580; 80048; 80053; 80202; 81001; 82247; 82248; 82948; 83605; 83735; 83880; 84100; 84145; 84443; 85025; 85027; 85097; 85378; 85610; 85651; 85730; 86038; 86140; 86431; 86606; 86612; 86635; 86698; 86757; 87040; 87077; 87088; 87186; 87804; 88305; 88311; 88313; 93306; 93970; 94660; 97039; 99152; 99153; A4354; A9540; C1758; C1769; C2617; C9113; G0378; J0696; J1100; J1200; J1580; J1940; J1956; J2001; J2175; J2185; J2250; J2405; J2543; J2704; J2930; J3010; J3370; J3475; J3490; J7030; J7040; J7120; Q9967

== ENCOUNTER → 2019-04-27 | Outpatient (CLI) | payer MEDICARE ==
[2019-04-27 12:04] LABS: CREATININE 0.9 mg/dL (0.5-1.5)
== END | disposition home or self-care (01) ==
LOC: LAB 11:09
PROVIDERS: ATTEND Neurological Surgery
DX: M54.12 Radiculopathy, cervical region (principal); M43.22 Fusion of spine, cervical region
CPT/HCPCS: 36415; 82565; 84520

== ENCOUNTER → 2019-05-04 | Outpatient (CLI) | payer MEDICARE ==
[~2019-05-04] MED LIST changes: -ACET650T24 PO; -GABA-531 PO; +GADODIAMIDE 10 MMOL/20 ML VIAL IV ONE; -OMEP40CA37 PO
== END | disposition home or self-care (01) ==
LOC: RAH 12:34
PROVIDERS: ATTEND Neurological Surgery
DX: M48.02 Spinal stenosis, cervical region (principal); M43.22 Fusion of spine, cervical region; M25.78 Osteophyte, vertebrae; M54.12 Radiculopathy, cervical region
CPT/HCPCS: 72156; A9579; 72040

== ENCOUNTER → 2021-03-25 | Outpatient (CLI) | payer MEDICARE ==
[~2021-03-25] MED LIST changes: -GADODIAMIDE 10 MMOL/20 ML VIAL IV ONE; +GADOTERATE MEGLUMINE 10 MMOL/20 ML VIAL IV ONE
== END | disposition home or self-care (01) ==
LOC: RAH 12:26
PROVIDERS: ATTEND Neurological Surgery
DX: M54.12 Radiculopathy, cervical region (principal); Z98.1 Arthrodesis status
CPT/HCPCS: 72156; A9575

== ENCOUNTER → 2021-06-20 | Outpatient (CLI) | payer MEDICARE | END | disposition home or self-care (01) | LOC: RAH 11:12 | PROVIDERS: ATTEND Physical Medicine & Rehabilitation | DX: M54.16 Radiculopathy, lumbar region (principal); M48.07 Spinal stenosis, lumbosacral region; M41.86 Other forms of scoliosis, lumbar region; M54.51 Vertebrogenic low back pain; Z88.6 Allergy status to analgesic agent; Z88.8 Allergy status to other drugs, medicaments and biological substances; Z90.49 Acquired absence of other specified parts of digestive tract | CPT/HCPCS: 72114 ==

== ENCOUNTER → 2021-12-16 | Outpatient (CLI) | payer MEDICARE | END | disposition home or self-care (01) | LOC: RAH 09:36 | PROVIDERS: ATTEND Physical Medicine & Rehabilitation | DX: M47.26 Other spondylosis with radiculopathy, lumbar region (principal); M51.27 Other intervertebral disc displacement, lumbosacral region; M48.07 Spinal stenosis, lumbosacral region; Z98.890 Other specified postprocedural states; Z88.6 Allergy status to analgesic agent; Z88.8 Allergy status to other drugs, medicaments and biological substances | CPT/HCPCS: 72148 ==

== ENCOUNTER 2023-07-24 11:18 | Emergency (ER) | payer MEDICARE ==
[~2023-07-24] VITALS: Ht 170.2 cm; Wt 102.1 kg
[2023-07-24 11:42] LABS: BASOPHILS # (AUTO) 0.05 K/uL (0.00-0.20); BASOPHILS % (AUTO) 0.5 % (0.0-5.0); EOSINOPHILS # (AUTO) 0.19 K/uL (0.00-0.70); HEMATOCRIT 40.4 % (36-48); IMMATURE GRANULOCYTE ABSOLUTE 0.03 K/uL (0-1); LYMPHOCYTES # (AUTO) 3.3 K/uL (1.0-4.8); LYMPHOCYTES % (AUTO) 34.2 % (21.0-51.0); MEAN CORPUSCULAR HEMOGLOBIN 28.9 pg (27.0-33.0); MEAN CORPUSCULAR HGB CONC 33.4 g/dL (32.0-36.0); MEAN CORPUSCULAR VOLUME 86.5 fL (79-99); MONOCYTES # (AUTO) 0.5 K/uL (0.1-1.0); MONOCYTES % (AUTO) 5.2 % (3.0-13.0); NEUTROPHILS # (AUTO) 5.6 K/uL (1.8-7.7); NEUTROPHILS % (AUTO) 57.8 % (40.0-77.0); PLATELET COUNT (AUTO) 268 K/uL (130-400); RED BLOOD CELL COUNT(AUTO) 4.67 MIL/uL (4.00-5.50); RED CELL DISTRIBUTION WIDTH 14.6 % (11.0-15.5); WHITE BLOOD COUNT (AUTO) 9.7 K/uL (4.8-10.8)
[2023-07-24 12:11] LABS: CREATININE 1.1 mg/dL (0.5-1.0)
[2023-07-24 12:15] LABS: ALBUMIN 3.4 g/dL (3.5-5.0); BILIRUBIN,TOTAL 0.5 mg/dL (0.2-1.0); MAGNESIUM 1.8 mg/dL (1.80-2.40); TOTAL PROTEIN, SERUM 6.6 g/dL (6.0-8.3)
[2023-07-24 12:16] LABS: B-TYPE NATRIURETIC PEPTIDE 74 pg/mL (0-100)
[2023-07-24] MEDS: SOLU-MEDROL 125MG VIAL IVP ONE (13:49)
[2023-07-24] MEDS: ALBUTEROL 0.083% 2.5 MG/3 ML INH IH ONE (13:56)
[2023-07-24 14:00] VITALS: PULSE 48; RESP 20
[2023-07-24] MEDS ORDERED: ALBUHFA IH (14:30)
[2023-07-24] MEDS ORDERED: BUDE90AE IH (14:30)
[2023-07-24] MEDS ORDERED: METH4TAB3 PO (14:30)
[2023-07-24 14:57] VITALS: BP 136/79; PULSE 87; RESP 20; O2SAT 98
== END 2023-07-24 14:59 | disposition home or self-care (01) ==
LOC: EDH 11:18
DX: R06.09 Other forms of dyspnea (principal); I10 Essential (primary) hypertension; Z88.5 Allergy status to narcotic agent; Z88.8 Allergy status to other drugs, medicaments and biological substances; Z90.49 Acquired absence of other specified parts of digestive tract; Z91.041 Radiographic dye allergy status
CPT/HCPCS: 99285; 96374; 71045; 87426; 83735; 84484; 80053; 83880; 85025; 36415; 93005; 94640; J2919

== ENCOUNTER → 2023-09-04 | Outpatient (CLI) | payer MEDICARE ==
[~2023-09-04] MED LIST changes: +ALBUHFA IH; +BUDE90AE IH; -GADOTERATE MEGLUMINE 10 MMOL/20 ML VIAL IV ONE; +METH4TAB3 PO
== END | disposition home or self-care (01) ==
LOC: RAH 11:19
PROVIDERS: ATTEND Internal Medicine Cardiovascular Disease
DX: I35.8 Other nonrheumatic aortic valve disorders (principal); I49.2 Junctional premature depolarization
CPT/HCPCS: 93306